=== PATIENT | female | born 1980 | race Caucasian/White ===

== ENCOUNTER → 2017-05-30 | Outpatient (CLI) | payer OTHER ==
[2017-05-30 09:51] LABS: CH 33.7; CHCM 33.1; HCT 41.5 % (34.0-46.0); HDW 2.05; HGB 13.3 gm/dL (11.4-16.0); MCH 32.9 pg (25.0-35.0); MCHC 32.1 g/dL (31.0-37.0); MCV 102.5 fL (80.0-100.0); Macrocytosis Slight; RBC 4.05 m/uL (3.80-5.40); RDW 13.1 % (11.5-15.5); WBC 6.2 k/uL (3.8-10.6)
--- NOTE | 2017-05-30 09:53 | US ---
EXAMINATION TYPE: US OB <= 14 wk fetus DATE OF EXAM: 05/30/2017 COMPARISON: NONE CLINICAL HISTORY: Z36 Confirm dates: EXAM PERFORMED: Transabdominal (TA) EXAM MEASUREMENTS: GESTATIONAL AGE / DATING Physician Established: not established Dates by LMP: (11 weeks/4 days) EDC: 12/15/2017 Dates by First Scan: No previous/ this is first scan Dates by Current Scan for: (8 weeks/5 days) EDC: 01/04/2018 MATERNAL ANATOMY Uterus: 12.3 x 8.0 x 7.0cm Right Ovary: 2.4 x 1.9 x 1.7cm Left Ovary: not seen Post CDS / Adnexa: wnl Presence of free fluid: no Presence of corpus luteal cyst: not identified Presence of subchorionic bleed: no GESTATION / SURVEY CRL: 2.1 (8 weeks/5 days) Yolk Sac (normal less than 6mm): 3.8mm Heart Rate: 163 bpm Rhythm: Normal IUP: Viable IUP Date of LMP: 03/10/2017 Beta HcG (if available): NA Single, live, IUP,8 weeks/5 days, EDC: 01/04/2018, HR 163bpm. Single live intrauterine gestation is confirmed as gestational sac, yolk sac, and pole are pres ent. No free fluid is seen in pelvic cul-de-sac. Right ovary is seen. Left ovary is not clearly identified. No suspicious adnexal masses are seen. IMPRESSION: Single live intrauterine gestation is confirmed, mean crown-rump length is 2.1 cm corresponding to 8 weeks 5 day old fetus.
[2017-05-30 10:27] LABS: Glucose 88 mg/dL (74-99); Non-African American GFR(MDRD) >60 (>60 ml/min/1.73 sqM)
[2017-05-30 10:37] LABS: Hepatitis B Surface Ag Index 0.05
[2017-05-30 15:57] LABS: Treponemal Ab Non-Reactive (Non-Reactive)
== END | disposition home or self-care (01) ==
LOC: RADUSWWP 08:54
PROVIDERS: ATTEND Obstetrics & Gynecology
DX: O26.811 Pregnancy related exhaustion and fatigue, first trimester (principal); Z3A.08 8 weeks gestation of pregnancy
CPT/HCPCS: 76801; 82565; 82947; 85027; 86762; 86780; 86850; 86900; 86901; 87340; 87390

== ENCOUNTER → 2017-09-10 | Outpatient (CLI) | payer OTHER ==
[2017-09-10 10:48] LABS: HCT 34.5 % (34.0-46.0); HGB 11.4 gm/dL (11.4-16.0); MCH 33.4 pg (25.0-35.0); MCHC 33.1 g/dL (31.0-37.0); MCV 100.9 fL (80.0-100.0); Macrocytosis Slight; Platelet Count 238 k/uL (150-450); RBC 3.42 m/uL (3.80-5.40); RDW 12.9 % (11.5-15.5); WBC 6.4 k/uL (3.8-10.6)
== END | disposition home or self-care (01) ==
LOC: LABWHC1 09:25
PROVIDERS: ATTEND Obstetrics & Gynecology
DX: Z34.82 Encounter for supervision of other normal pregnancy, second trimester (principal)
CPT/HCPCS: 36415; 82950; 85027; 86850

== ENCOUNTER → 2017-10-22 | Outpatient (CLI) | payer OTHER ==
--- NOTE | 2017-10-22 22:56 | US ---
EXAMINATION TYPE: US OB anatomy transabd DATE OF EXAM: 10/22/2017 COMPARISON: 08/08/2017 and 08/22/2017 HISTORY: 36-year-old female Large for dates 036.62X0 TECHNIQUE: Transabdominal (TA) FINDINGS: EXAM MEASUREMENTS: GESTATIONAL AGE / DATING Physician Established: (30 weeks/2 days) (as reported by the patient) EDC: 12/29/17 Dates by LMP: does not correlate Dates by Current Scan: (31 weeks/5 days) EDC: 12/19/17 EDC from the ultrasound of 05/30/2017 was 01/04/2018. EDC from the anatomic survey of 08/08/2017 was 01/02/2017. Therefore, there has been approximately 2 weeks more growth than expected from 08/08/2017. SURVEY IUP: Single PLACENTA: previously noted as posterior with anterior accessory lobe, appears more fundal and posteri or on today's study PREVIA: No previa SARAH: 14.5 cm CERVICAL LENGTH (transabdominal: norm > 3.0cm): 4.1 cm BIOMETRY PRESENTATION: Breech BPD: 8.0 cm 32 weeks / 1 days HC: 28.6 cm 31 weeks / 3 days AC: 27.5 cm 31 weeks / 4 days FL: 6.1 cm 31 weeks / 5 days ESTIMATED WEIGHT IN GRAMS: 1806 grams ESTIMATED WEIGHT IN LBS/OZ: 4 lbs. 0 oz. WEIGHT PERCENTAGE BASED ON ESTABLISHED DATE: 83% versus 74th percentile on 08/08/2017 HC/AC: 1.0 FL/AC: 22 HEART RATE: 147 bpm RHYTHM: Normal ANATOMY SEEN (within normal limits): Cisterna Magna (< 1.1 cm) 0.4 cm Cerebellum (varies with age) 3.4 cm Four Chamber Heart Stomach Situs Nose / Lips Kidneys (bilateral) Bladder Three Vessel Cord Longitudinal Spine Transverse Spine ANATOMY NOT SEEN: due to shadowing from bone, position Cavus Septi Pellucidi Lateral Vent (< 1 cm) Choroid Plexus (bilateral) Midline Falx Arms (bilateral) Legs (bilateral) Diaphragm Diaphragm Outflow tracts: LVOT/RVOT Cord Insert IMPRESSION: 1. Single live intrauterine . Note discrepancy in established gestational age as reported by the patient (30 weeks 2 days) and the previously established gestational age reported on the patient 's survey of 08/08/2017 (29 weeks 3 days). Clinical correlation recommended. 2. Based on current ultrasound biometry, dates by current scan are 31 weeks 5 days which would mean 2 weeks more growth than expected from 08/08/2017 (current EFW 83%). 3. Follow-up as indicated.
== END | disposition home or self-care (01) ==
LOC: RADUSWWP 07:41
PROVIDERS: ATTEND Obstetrics & Gynecology
DX: Z53.9 Procedure and treatment not carried out, unspecified reason (principal)
CPT/HCPCS: 76811

== ENCOUNTER → 2022-01-16 | Outpatient (CLI) | payer OTHER ==
--- NOTE | 2022-01-16 12:39 | US ---
EXAMINATION TYPE: US axilla LT DATE OF EXAM: 01/16/2022 COMPARISON: NONE CLINICAL HISTORY: R59.0 LOCALIZED ENLARGED LYMPH NODES. palpables left axilla for 8+ years 2 normal appearing lymph nodes left axilla = 1.8 x 0.6 x 1.0cm and 1.2 x 0.4 x 0.8cm No concerning solid or cystic mass or abnormal fluid collection on images saved. IMPRESSION: Identification of 2 benign-appearing lymph nodes left axilla. No concerning mass or connie opathy seen on images saved.
== END | disposition home or self-care (01) ==
LOC: RADUSWWP 11:58
PROVIDERS: ATTEND Family Medicine
DX: R59.0 Localized enlarged lymph nodes (principal)